=== PATIENT | female | born 1935 | race Caucasian/White ===

== ENCOUNTER 2019-01-16 22:05 | Inpatient (IN) | payer MEDICAID, MEDICARE ==
[~2019-01-16] VITALS: Ht 154.9 cm; Wt 46.3 kg
[2019-01-16] MEDS ORDERED: LEVOTHYROXIN TAB 25MCG (22:54)
[2019-01-16] MEDS ORDERED: XARELTO 20 MG TABLET (22:54)
[2019-01-16] MEDS ORDERED: LOSARTAN POTASSIUM 25 MG PO (22:54)
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
--- NOTE | 2019-01-17 01:26 | NUR ---
Pt. admitted to MHU , under care of Dr. YEN/BRYSON Belongs List completed. PATIENT ON 5150 FOR GD.
[2019-01-17] MEDS ORDERED: MAG HYDROX/AL HYDROX/SIMETH 30 ML LIQUID UDC PO PRN (01:30)
[2019-01-17] MEDS ORDERED: MAGNESIUM HYDROXIDE 30 ML LIQUID UDC PO PRN (01:30)
[2019-01-17] MEDS ORDERED: CLONAZEPAM 0.5 MG TABLET PO PRN (01:30)
[2019-01-17] MEDS ORDERED: ACETAMINOPHEN 325 MG TABLET PO PRN (01:30)
[2019-01-17] MEDS ORDERED: LORAZEPAM 2 MG/1 ML VIAL IM ONE (02:15)
[2019-01-17] MEDS ORDERED: OLANZAPINE 10 MG VIAL IM ONE (02:15)
[2019-01-17 07:30] VITALS: BP 164/66
[2019-01-17] MEDS ORDERED: LOSA25TA27 PO (08:28)
[2019-01-17] MEDS ORDERED: LEVO25TA9 PO (08:35)
[2019-01-17] MEDS ORDERED: RIVA10TA PO (08:38)
[2019-01-17] MEDS ORDERED: EPOE1VIA12 IJ (08:41)
[2019-01-17] MEDS ORDERED: QUET25TA PO ×2 (08:46→08:47)
[2019-01-17 11:15] VITALS: BP 119/59
[2019-01-17] MEDS: QUETIAPINE FUMARATE 25 MG TABLET PO SCH ×2 (11:20→17:36)
--- NOTE | 2019-01-17 15:18 | NUR ---
Initial Discharge Plan: Patient is a 83 year old female who currently lives at [facility] [[address] [place] [address]; ]. Per international logistics coordinator, Derrick, patient will be able to return when the patient is ready for discharge. concrete worker called and left a voicemail fro Celi Morrell [[phone]], who is listed on patient POLST, and is awaiting a call back. concrete worker will continue to collaborate with patient, family, and MD on a safe and proper discharge.
[2019-01-17 16:00] VITALS: BP 120/63
[2019-01-17] MEDS: RIVAROXABAN 10 MG TABLET PO SCH (17:45)
--- NOTE | 2019-01-17 18:51 | NUR ---
Pt received this morning in bed, assisted to adelita-chair, assessed, AOx1-2 confused and forgetful. Pt is compliant with routine medication administration as ordered. Pt seen by MD. New orders received. Pt is to be NPO starting midnight r/t lipid panel requiring fasting. Pt denies SI/HI and pain or discomfort throughout this shift. PT assisted to bathrom for BMx1 and pale yellow voiding. Pt able to make needs known. Comfort and safety measures implemented. Will continue to monitor for safety.
--- NOTE | 2019-01-17 19:45 | NUR ---
Received patient in adelita chair. Confused and forgetful. No acute distress or pain noted. Denies SI/HI. Will continue to monitor.
[2019-01-17 20:56] VITALS: BP 119/50
[2019-01-17] MEDS: CLONAZEPAM 0.5 MG TABLET PO PRN (21:14)
[2019-01-17] MEDS: TEMAZEPAM 7.5 MG CAPSULE PO PRN (22:04)
[2019-01-18] MEDS: LEVOTHYROXINE SODIUM 25 MCG TABLET PO SCH (06:50)
--- NOTE | 2019-01-18 06:59 | NUR ---
She was aggressive and uncooperative and tried to get out of adelita-chair. Did not have a good sleep even with help of Restoril 7.5 mg cap. Only 3.5 hours sleep. Refused blood work and Synthroid this morning. Continue to monitor and will endorse to the day shift nurse accordingly.
[2019-01-18 07:30] VITALS: BP 134/63
[2019-01-18] MEDS: QUETIAPINE FUMARATE 25 MG TABLET PO SCH ×2 (09:24→16:42)
[2019-01-18] MEDS: LOSARTAN POTASSIUM 25 MG TABLET PO SCH (09:24)
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
--- NOTE | 2019-01-18 14:00 | NUR ---
Gps/Ornamenter- Per Wound care Nurse ok to apply xeroform gauze to small skin tears and brusings to bilateral forearms, sites covered w/ large bandaid.
[2019-01-18 16:00] VITALS: BP 102/75
[2019-01-18] MEDS: RIVAROXABAN 10 MG TABLET PO SCH (17:27)
[2019-01-18 19:52] VITALS: BP 114/51
[2019-01-18] MEDS: TEMAZEPAM 7.5 MG CAPSULE PO PRN (23:17)
[2019-01-18 23:40] LABS: *BILIRUBIN,URIN NEGATIVE (NEGATIVE); *COLOR,URINE YELLOW (YELLOW); *KETONES,URINE NEGATIVE (NEGATIVE); *UROBILINOGEN,URINE 0.2 E.U./dl (NORMAL); LEUKOCYTE ESTERASE ,URINE 1+ (NEGATIVE); NITRITE, URINE NEGATIVE (NEGATIVE); UGLUCOSE NEGATIVE (NEGATIVE)
[2019-01-18 23:46] LABS: *BLOOD, URINE TRACE (NEGATIVE)
[2019-01-18 23:47] LABS: *CLARITY,URINE HAZY (CLEAR)
[2019-01-18 23:49] LABS: BACTERIA,URINE FEW /HPF (NONE SEEN); WBC,URINE 20-50 /HPF (0-3)
[2019-01-18 23:50] LABS: MUCUS,URINE FEW /LPF (0-FEW); SQUAMOUS EPITHELIAL CELL,UR MODERATE /HPF (NONE SEEN)
[2019-01-18 23:52] LABS: *AMPHETAMINE, URINE NEGATIVE (NEGATIVE); *BARBITURATE, URINE NEGATIVE (NEGATIVE); *CANNABINOID, URINE NEGATIVE (NEGATIVE); *COCCAINE, URINE NEGATIVE (NEGATIVE); *OPIATE, URINE NEGATIVE (NEGATIVE); *PHENCYCLIDINE SCREEN,URINE NEGATIVE (NEGATIVE)
[2019-01-19] MEDS: CLONAZEPAM 0.5 MG TABLET PO PRN (03:03)
[2019-01-19] MEDS: LEVOTHYROXINE SODIUM 25 MCG TABLET PO SCH (06:29)
--- NOTE | 2019-01-19 06:46 | NUR ---
Pt in bed resting,calm. He had shower in AM. Slept 5.30 hrs. Was given restoril and clonazepam last night night. Compliant with meds. Safety measures rendered.
[2019-01-19 07:30] VITALS: BP 146/61
[2019-01-19] MEDS: LOSARTAN POTASSIUM 25 MG TABLET PO SCH (09:19)
[2019-01-19] MEDS: QUETIAPINE FUMARATE 25 MG TABLET PO SCH ×2 (09:20→17:20)
[2019-01-19 16:29] VITALS: BP 119/47
[2019-01-19] MEDS: RIVAROXABAN 15 MG TABLET PO SCH (18:29)
[2019-01-19] MEDS: CEphaleXIN 500 MG CAPSULE PO SCH (20:09)
[2019-01-19 21:02] VITALS: BP 126/57
[2019-01-20] MEDS: LEVOTHYROXINE SODIUM 25 MCG TABLET PO SCH (06:08)
[2019-01-20 07:30] VITALS: BP 148/67
[2019-01-20 07:42] LABS: BASOPHILS % (AUTO) 0.5 % (0.0-2.0); EOSINOPHILS # (AUTO) 0.3 K/uL (0.0-0.7); EOSINOPHILS % (AUTO) 7.1 % (0.0-7.0); HEMATOCRIT 31.3 % (31.2-41.9); LYMPHOCYTES # (AUTO) 1.1 K/uL (20.0-40.0); LYMPHOCYTES % (AUTO) 23.5 % (20.5-51.5); MEAN CORPUSCULAR HEMOGLOBIN 30.2 uug (24.7-32.8); MEAN CORPUSCULAR HGB CONC 32 g/dL (32.3-35.6); MEAN CORPUSCULAR VOLUME 94.5 fL (75.5-95.3); MONOCYTES # (AUTO) 0.5 K/uL (2.0-10.0); MONOCYTES % (AUTO) 10.4 % (0.0-11.0); NEUTROPHILS # (AUTO) 2.7 K/uL (1.8-8.9); NEUTROPHILS % (AUTO) 58.5 % (38.5-71.5); PLATELET COUNT (AUTO) 198 K/uL (179-408); RED BLOOD CELL COUNT(AUTO) 3.31 MIL/uL (3.63-4.92); WHITE BLOOD COUNT (AUTO) 4.6 K/uL (3.8-11.8)
[2019-01-20 07:58] LABS: ALANINE AMINOTRANSFERASE 12 U/L (14-59); ALKALINE PHOSPHATASE 73 U/L (50-136); ASPARTATE AMINOTRANSFERASE 13 U/L (15-37); BILIRUBIN,TOTAL 0.2 mg/dL (0.2-1.0); CARBON DIOXIDE 22 mmol/L (21-32); CHLORIDE 111 mmol/L (98-107); CHOLESTEROL 142 mg/dL (<200); CREATININE 2.2 mg/dL (0.6-1.3); GLUCOSE 101 mg/dL (74-106); HDL CHOLESTEROL 36 mg/dL (40-60); MAGNESIUM 2.2 mg/dL (1.8-2.4); PHOSPHOROUS 4.5 mg/dL (2.5-4.9); POTASSIUM 5.2 mmol/L (3.5-5.1); TOTAL PROTEIN, SERUM 6.2 g/dL (6.4-8.2); TRIGLYCERIDES 107 MG/DL (30-150); UREA NITROGEN, BLOOD 61 mg/dL (7-18)
[2019-01-20 08:05] LABS: THYROID STIMULATING HORMONE 7.782 mIU/mL (0.358-3.740)
[2019-01-20] MEDS: QUETIAPINE FUMARATE 25 MG TABLET PO SCH ×2 (08:58→17:36)
[2019-01-20] MEDS: CEphaleXIN 500 MG CAPSULE PO SCH ×2 (08:58→20:02)
[2019-01-20] MEDS: LOSARTAN POTASSIUM 25 MG TABLET PO SCH (08:59)
--- NOTE | 2019-01-20 12:05 | NUR ---
Gps/Casualty Claims Supervisor- This am lab results reported to Mauricio Hodge NP, came in to see patient, Dr Nicholas Hernandez will see patient.
--- NOTE | 2019-01-20 15:30 | NUR ---
Gps/Dry Kiln Operator Helper- Labs results reported to Dr Nicholas Anglin (K+ 5.2, BUN 61, creat. 2.2 )no new order received.
[2019-01-20 16:00] VITALS: BP 109/58
[2019-01-20] MEDS: RIVAROXABAN 15 MG TABLET PO SCH (17:37)
--- NOTE | 2019-01-20 18:30 | NUR ---
Gps/Awning Hanger Supervisor- Remains up on her adelita-chair , this pm, family are here visiting.
[2019-01-20 19:58] VITALS: BP 119/51
[2019-01-21] MEDS: LEVOTHYROXINE SODIUM 25 MCG TABLET PO SCH (06:03)
[2019-01-21 07:30] VITALS: BP 116/95
[2019-01-21] MEDS: QUETIAPINE FUMARATE 25 MG TABLET PO SCH ×3 (08:19→17:03)
[2019-01-21] MEDS: LOSARTAN POTASSIUM 25 MG TABLET PO SCH (08:19)
[2019-01-21] MEDS: CEphaleXIN 500 MG CAPSULE PO SCH ×2 (08:19→21:00)
[2019-01-21] MEDS ORDERED: OLANZAPINE 10 MG VIAL IM ONE (12:00)
[2019-01-21] MEDS ORDERED: LORAZEPAM 2 MG/1 ML VIAL IM ONE (12:00)
[2019-01-21] MEDS ORDERED: diphenhydrAMINE 50 MG/1 ML VIAL IM ONE (12:00)
--- NOTE | 2019-01-21 12:00 | NUR ---
patient is confused and incoherent striking out to other nursing staffs. refused to take prn medication.agitated aggressive high risk for violence,Dr. Pineda notified IM was given.will continue close monitoring.
[2019-01-21 15:59] VITALS: BP 106/45
[2019-01-21] MEDS: RIVAROXABAN 15 MG TABLET PO SCH (17:05)
[2019-01-21 20:20] VITALS: BP 119/54
[2019-01-22] MEDS: LEVOTHYROXINE SODIUM 25 MCG TABLET PO SCH (06:24)
[2019-01-22 07:30] VITALS: BP 129/62
[2019-01-22] MEDS: LOSARTAN POTASSIUM 25 MG TABLET PO SCH (09:02)
[2019-01-22] MEDS: CEphaleXIN 500 MG CAPSULE PO SCH ×2 (09:02→20:47)
[2019-01-22] MEDS: QUETIAPINE FUMARATE 25 MG TABLET PO SCH ×3 (09:04→17:19)
[2019-01-22] MEDS: Z GUARD REMEDY PASTE 57 GM TUBE TOP SCH ×2 (09:36→21:42)
[2019-01-22 16:08] VITALS: BP 150/83
[2019-01-22] MEDS: RIVAROXABAN 15 MG TABLET PO SCH (17:24)
[2019-01-22 20:10] VITALS: BP 106/49
[2019-01-22] MEDS: CLONAZEPAM 0.5 MG TABLET PO PRN (20:47)
--- NOTE | 2019-01-22 23:30 | NUR ---
PICTURES WERE TAKEN OF PATIENT'S SKIN TEAR X2 ON HER LEFT HAND AND WRIST. Addendum: 01/23/19 at 0453 by MIGUELITO GREENE RN PICTURES WERE TAKEN ON 01/23/19 AT APPROX 0030.
[2019-01-23] MEDS: TEMAZEPAM 7.5 MG CAPSULE PO PRN (00:21)
[2019-01-23] MEDS: CLONAZEPAM 0.5 MG TABLET PO PRN ×4 (03:00→17:08)
[2019-01-23] MEDS: LEVOTHYROXINE SODIUM 25 MCG TABLET PO SCH (06:15)
[2019-01-23 07:26] LABS: BASOPHILS % (AUTO) 0.6 % (0.0-2.0); EOSINOPHILS # (AUTO) 0.4 K/uL (0.0-0.7); HEMATOCRIT 30.3 % (31.2-41.9); HEMOGLOBIN 9.8 g/dL (10.9-14.3); LYMPHOCYTES # (AUTO) 1.1 K/uL (20.0-40.0); LYMPHOCYTES % (AUTO) 20.9 % (20.5-51.5); MEAN CORPUSCULAR HEMOGLOBIN 30.2 uug (24.7-32.8); MEAN CORPUSCULAR HGB CONC 32 g/dL (32.3-35.6); MEAN CORPUSCULAR VOLUME 93.5 fL (75.5-95.3); MONOCYTES # (AUTO) 0.6 K/uL (2.0-10.0); MONOCYTES % (AUTO) 11.9 % (0.0-11.0); NEUTROPHILS # (AUTO) 3.1 K/uL (1.8-8.9); NEUTROPHILS % (AUTO) 59.6 % (38.5-71.5); PLATELET COUNT (AUTO) 222 K/uL (179-408); RED BLOOD CELL COUNT(AUTO) 3.24 MIL/uL (3.63-4.92); WHITE BLOOD COUNT (AUTO) 5.1 K/uL (3.8-11.8)
[2019-01-23 07:30] VITALS: BP 118/58
[2019-01-23 07:58] LABS: CARBON DIOXIDE 22 mmol/L (21-32); CHLORIDE 108 mmol/L (98-107); CREATININE 2.3 mg/dL (0.6-1.3); GLUCOSE 89 mg/dL (74-106); POTASSIUM 5.7 mmol/L (3.5-5.1); UREA NITROGEN, BLOOD 76 mg/dL (7-18)
[2019-01-23] MEDS: LOSARTAN POTASSIUM 25 MG TABLET PO SCH (08:10)
[2019-01-23] MEDS: CEphaleXIN 500 MG CAPSULE PO SCH ×2 (08:10→21:00)
[2019-01-23] MEDS: QUETIAPINE FUMARATE 25 MG TABLET PO SCH ×2 (08:10→17:08)
[2019-01-23] MEDS: Z GUARD REMEDY PASTE 57 GM TUBE TOP SCH ×2 (08:55→21:00)
[2019-01-23] MEDS ORDERED: QUETIAPINE FUMARATE 25 MG TABLET PO SCH (09:00)
--- NOTE | 2019-01-23 10:13 | NUR ---
FIREARMS REPORT: food counter worker completed and submitted a DOJ firearms report for a 5250 GD certification.
[2019-01-23] MEDS ORDERED: SODIUM POLYSTYRENE SULFONATE 15 G/60 ML LIQUID UDC PO ONE (11:30)
--- NOTE | 2019-01-23 12:54 | NUR ---
Discharge planning: milk processing worker called and spoke with marketing technology coordinator, Derrick, at [facility] [[address], [place] [address]; ] regarding patient tentative discharge scheduled for Friday, January 25, 2019. Derrick states he is agreeable with tentative date and accepting of patient. Derrick requested updated clinical information. milk processing worker faxed updated clinicals and will follow-up as needed.
--- NOTE | 2019-01-23 15:28 | NUR ---
patient sitting in gerichair, had episode of agressiveness and combativness, throwing stuff on others, very difficult to redirect, Klonopin administered as ordered at breakfast time and lunch time. effective, kept safe. continue to monitor
[2019-01-23 16:00] VITALS: BP 103/37
[2019-01-23] MEDS: RIVAROXABAN 15 MG TABLET PO SCH (17:10)
[2019-01-23 20:40] VITALS: BP 139/61
[2019-01-23] MEDS ORDERED: LORAZEPAM 2 MG/1 ML VIAL IM ONE (21:30)
[2019-01-23] MEDS ORDERED: OLANZAPINE 10 MG VIAL IM ONE (21:30)
[2019-01-23] MEDS ORDERED: diphenhydrAMINE 50 MG/1 ML VIAL IM ONE (21:30)
--- NOTE | 2019-01-23 22:00 | NUR ---
received to care, up in adelita chair, appearing agitated, yelling incoherently, and attempting to strike staff, at times. she spoke with her family on the phone, and they encouraged her to cooperate, but she continued to yell and scream, refusing all medications, and care. she finally escalated to the point that the doctor was called, and she was given an IM injection of zyprexa (2.5 mg)/ ativan (1 mg) /benadryl (25 mg)
--- NOTE | 2019-01-23 22:30 | NUR ---
received to care, up in adelita chair, appearing agitated, yelling incoherently, and attempting to strike staff, at times. she spoke with her family on the phone, and they encouraged her to cooperate, but she continued to yell and scream, refusing all medications, and care. she finally escalated to the point that the doctor was called, and she was given an IM injection of zyprexa (2.5 mg)/ ativan (1 mg) /benadryl (25 mg), at 2129. as of 2229, she remains agitated, but calmer. no yelling of aggression noted. remains up in adelita chair for safety. will continue to monitor closely.
--- NOTE | 2019-01-24 00:30 | NUR ---
appears to be sleeping intermittently. no distress noted.
[2019-01-24] MEDS: LEVOTHYROXINE SODIUM 50 MCG TABLET PO SCH (06:46)
[2019-01-24] MEDS ORDERED: LEVOTHYROXINE SODIUM 25 MCG TABLET PO SCH (07:00)
[2019-01-24 07:30] VITALS: BP 109/72
--- NOTE | 2019-01-24 09:06 | NUR ---
Gps/Administrative Assistant Front Desk- Unable to administer routine am. meds., patient asleep. will reoffer at a later time when fully awake.
--- NOTE | 2019-01-24 11:00 | NUR ---
Gps/Team Primary Care Physician- Per FINAL INSPECTOR AND TESTER assisted patient with her late breakfast, noted pt. remains drowsy, was instructed tonot to feed pt. at this time r/t to sleepiness.Arosable, but goes right back to sleep. V/s stable 94% 02 sat.
[2019-01-24] MEDS: Z GUARD REMEDY PASTE 57 GM TUBE TOP SCH ×2 (11:59→21:38)
[2019-01-24] MEDS: CEFTRIAXONE 1 G VIAL IM SCH (12:09)
[2019-01-24] MEDS: LOSARTAN POTASSIUM 25 MG TABLET PO SCH (12:19)
[2019-01-24] MEDS: QUETIAPINE FUMARATE 25 MG TABLET PO SCH ×2 (12:20→20:43)
[2019-01-24 16:00] VITALS: BP 124/51
[2019-01-24] MEDS: RIVAROXABAN 15 MG TABLET PO SCH (18:04)
[2019-01-24 20:30] VITALS: BP 132/50
--- NOTE | 2019-01-24 22:00 | NUR ---
received to care, up in adelita chair, talking to self, pleasant , but guarded, upon approach. compliant with medications and staff direction. as of 2199, she remains awake, in adelita chair, for safety. no distress noted. will continue to monitor closely.
--- NOTE | 2019-01-24 23:30 | NUR ---
assisted to bed at 2300. as of 2329, she appears to be asleep. no distress noted. will continue to monitor closely.
--- NOTE | 2019-01-25 06:40 | NUR ---
slept 6.5 hours
[2019-01-25 06:41] LABS: BASOPHILS % (AUTO) 0.6 % (0.0-2.0); EOSINOPHILS # (AUTO) 0.3 K/uL (0.0-0.7); EOSINOPHILS % (AUTO) 8.3 % (0.0-7.0); HEMATOCRIT 31.1 % (31.2-41.9); HEMOGLOBIN 9.9 g/dL (10.9-14.3); LYMPHOCYTES % (AUTO) 24.6 % (20.5-51.5); MEAN CORPUSCULAR HEMOGLOBIN 29.7 uug (24.7-32.8); MEAN CORPUSCULAR HGB CONC 32 g/dL (32.3-35.6); MEAN CORPUSCULAR VOLUME 93.4 fL (75.5-95.3); MONOCYTES # (AUTO) 0.5 K/uL (2.0-10.0); MONOCYTES % (AUTO) 11.9 % (0.0-11.0); NEUTROPHILS # (AUTO) 2.2 K/uL (1.8-8.9); NEUTROPHILS % (AUTO) 54.6 % (38.5-71.5); PLATELET COUNT (AUTO) 218 K/uL (179-408); RED BLOOD CELL COUNT(AUTO) 3.33 MIL/uL (3.63-4.92); WHITE BLOOD COUNT (AUTO) 4.1 K/uL (3.8-11.8)
[2019-01-25 06:45] LABS: CARBON DIOXIDE 23 mmol/L (21-32); CHLORIDE 110 mmol/L (98-107); CREATININE 2.4 mg/dL (0.6-1.3); GLUCOSE 116 mg/dL (74-106); POTASSIUM 5.2 mmol/L (3.5-5.1)
[2019-01-25 06:49] LABS: UREA NITROGEN, BLOOD 80 mg/dL (7-18)
[2019-01-25] MEDS: LEVOTHYROXINE SODIUM 50 MCG TABLET PO SCH (06:50)
[2019-01-25 07:30] VITALS: BP 116/56
[2019-01-25] MEDS: QUETIAPINE FUMARATE 25 MG TABLET PO SCH ×2 (08:37→20:14)
[2019-01-25] MEDS: LOSARTAN POTASSIUM 25 MG TABLET PO SCH (08:37)
[2019-01-25] MEDS: Z GUARD REMEDY PASTE 57 GM TUBE TOP SCH ×2 (08:38→20:15)
[2019-01-25] MEDS: CEFTRIAXONE 1 G VIAL IM SCH (11:53)
[2019-01-25 16:00] VITALS: BP 139/64
[2019-01-25] MEDS: RIVAROXABAN 15 MG TABLET PO SCH (18:17)
[2019-01-25 21:11] VITALS: BP 154/57
--- NOTE | 2019-01-25 22:00 | NUR ---
received to care, up in adelita chair for safety, pleasant, but confused, upon approach. compliant with medications, PO fluids, and bedtime snack. as of 2200, she appears to be asleep, in bed. no distress noted. will continue to monitor closely.
--- NOTE | 2019-01-26 06:00 | NUR ---
slept 7.5 hours
[2019-01-26] MEDS: LEVOTHYROXINE SODIUM 50 MCG TABLET PO SCH (06:52)
[2019-01-26 07:30] VITALS: BP 147/58
[2019-01-26] MEDS: LOSARTAN POTASSIUM 25 MG TABLET PO SCH (08:20)
[2019-01-26] MEDS: QUETIAPINE FUMARATE 25 MG TABLET PO SCH ×2 (08:21→20:18)
[2019-01-26] MEDS: Z GUARD REMEDY PASTE 57 GM TUBE TOP SCH ×2 (08:21→20:19)
[2019-01-26] MEDS: CEFTRIAXONE 1 G VIAL IM SCH (10:49)
[2019-01-26] MEDS: CLONAZEPAM 0.5 MG TABLET PO PRN (15:38)
--- NOTE | 2019-01-26 15:42 | NUR ---
patient agitated. screaming to staff. klonopin 0.25 mg po given. continue monitoring for safety.
[2019-01-26 16:00] VITALS: BP 143/59
--- NOTE | 2019-01-26 16:42 | NUR ---
patient is calm now. prn effective.
[2019-01-26] MEDS: RIVAROXABAN 15 MG TABLET PO SCH (17:07)
[2019-01-26 21:09] VITALS: BP 127/46
[2019-01-27] MEDS: LEVOTHYROXINE SODIUM 50 MCG TABLET PO SCH (07:01)
[2019-01-27 08:04] VITALS: BP 153/69
[2019-01-27] MEDS: QUETIAPINE FUMARATE 25 MG TABLET PO SCH ×2 (08:14→14:45)
[2019-01-27] MEDS: LOSARTAN POTASSIUM 25 MG TABLET PO SCH (08:14)
[2019-01-27] MEDS: Z GUARD REMEDY PASTE 57 GM TUBE TOP SCH ×2 (08:15→21:07)
[2019-01-27] MEDS: CLONAZEPAM 0.5 MG TABLET PO PRN ×2 (09:54→14:12)
[2019-01-27] MEDS: CEFTRIAXONE 1 G VIAL IM SCH (12:04)
[2019-01-27 16:50] VITALS: BP 134/62
[2019-01-27] MEDS: RIVAROXABAN 15 MG TABLET PO SCH (17:19)
[2019-01-27 20:00] VITALS: BP 97/50
[2019-01-27] MEDS ORDERED: QUETIAPINE FUMARATE 25 MG TABLET PO SCH (21:00)
--- NOTE | 2019-01-27 22:06 | NUR ---
RECEIVED PATIENT IN THE TAE CHAIR SLEEPING. SLEPT TILL APPROX.21;30 WHEN SOME SNACKS WAS OFFERED AND WELL TAKEN. COMPLIANT WITH HER MEDS AND WAS PUT IN BED TO SLEEP.DENIES PAIN OR DISCOMFORT. WILL CONTINUE TO MONITOR.
--- NOTE | 2019-01-28 06:29 | NUR ---
SLEPT WELL FOR APPROX.8;30HRS. PERSONAL HYGEINE KEPT AND MADE COMFORTABLE IN BED.
[2019-01-28] MEDS: LEVOTHYROXINE SODIUM 50 MCG TABLET PO SCH (06:30)
[2019-01-28 07:30] VITALS: BP 131/50
[2019-01-28 07:44] LABS: BASOPHILS % (AUTO) 0.6 % (0.0-2.0); EOSINOPHILS # (AUTO) 0.4 K/uL (0.0-0.7); EOSINOPHILS % (AUTO) 10.5 % (0.0-7.0); HEMATOCRIT 29.1 % (31.2-41.9); HEMOGLOBIN 9.3 g/dL (10.9-14.3); LYMPHOCYTES % (AUTO) 27.3 % (20.5-51.5); MEAN CORPUSCULAR HEMOGLOBIN 29.8 uug (24.7-32.8); MEAN CORPUSCULAR HGB CONC 32 g/dL (32.3-35.6); MEAN CORPUSCULAR VOLUME 92.7 fL (75.5-95.3); MONOCYTES # (AUTO) 0.4 K/uL (2.0-10.0); MONOCYTES % (AUTO) 10.5 % (0.0-11.0); NEUTROPHILS # (AUTO) 1.9 K/uL (1.8-8.9); NEUTROPHILS % (AUTO) 51.1 % (38.5-71.5); PLATELET COUNT (AUTO) 218 K/uL (179-408); RED BLOOD CELL COUNT(AUTO) 3.13 MIL/uL (3.63-4.92); WHITE BLOOD COUNT (AUTO) 3.8 K/uL (3.8-11.8)
[2019-01-28] MEDS: QUETIAPINE FUMARATE 25 MG TABLET PO SCH ×2 (08:00→12:42)
[2019-01-28 08:01] VITALS: BP 131/58
[2019-01-28] MEDS: LOSARTAN POTASSIUM 25 MG TABLET PO SCH (08:01)
[2019-01-28] MEDS: CLONAZEPAM 0.5 MG TABLET PO PRN (08:01)
[2019-01-28] MEDS: Z GUARD REMEDY PASTE 57 GM TUBE TOP SCH (08:02)
[2019-01-28 08:10] LABS: ALANINE AMINOTRANSFERASE 12 U/L (14-59); ALKALINE PHOSPHATASE 62 U/L (50-136); ASPARTATE AMINOTRANSFERASE 26 U/L (15-37); BILIRUBIN,TOTAL 0.2 mg/dL (0.2-1.0); CARBON DIOXIDE 24 mmol/L (21-32); CHLORIDE 112 mmol/L (98-107); CREATININE 1.9 mg/dL (0.6-1.3); GLUCOSE 99 mg/dL (74-106); POTASSIUM 5.3 mmol/L (3.5-5.1); TOTAL PROTEIN, SERUM 6.5 g/dL (6.4-8.2); UREA NITROGEN, BLOOD 58 mg/dL (7-18)
--- NOTE | 2019-01-28 09:00 | NUR ---
PATIENT IS ALERT X 1-2, AWAKE, NO SOB, RESP EVEN NONLABORED,SKIN WARM AND DRY TO TOUCH, NO SOB, RESP EVEN NONLABORED,SKIN WARM AND DRY TO TOUCH, PATIENT FOUND SITTING ON THE FLOOR NEXT TO HER BED, AROUND 0845 AM, ASSESSMENT DONE, NO INJURY NOTED AT THIS TIME, PATIENT DENIED HITTING HER HEAD TO ANYTHING, DENIED ANY PAIN, ABLE TO MOVE HER UPPER AND LOWER EXTREMITIES WITHOUT ANY LIMITATION, ASSISTED TO GERICHAIR, NOTED WITH SKIN TEARS TO RIGHT FOREARM AT THREE DIFFERENT SITES #1 2CM X1.5CM, #2 1.5CM 1CM , #3 4CM X4.5 CM, APPROXIMATED SKIN AND TREATMENT DONE. NO ACTIVE BLEEDING NOTED, MD PEACOCK AWARE, GRAND DAUGHTER JOSE R MADE AWARE, BILATERAL HIP XRAYS PERFORMED, NO ACUTE FRACTURE NOTED. PATIENT IS SITTING IN GERICHAIR AT THIS TIME, NO ACUTE DISTRESS NOTED AT THIS TIME.CONTINUE TO MONITOR
--- NOTE | 2019-01-28 10:02 | NUR ---
DC NOTE: Patient will be discharged back to [facility] [[address] [place] [address]; ] and transportation will be provided by ambulance at 1:00pm. Please arrange ambulance transportation for this patient. Acceptance to facility was received by Derrick quality management coordinator, who states they are ready to accept the patient today. Patient is AxOx1, denies suicidal ideation, is able to plan for self-care, and is agreeable with discharge plan. compensator worker has called and spoken with patient granddaughter, Fanta Grady [[phone]], who is aware and agreeable with discharge plan. Patient will follow-up with Dr. Johnson [psychiatrist] and Dr. Corbin [associate field service engineer] at the facility. Patient has also been provided with mental health resources including [facility] Crisis Line , Alaina Dorado , and the National Suicide Prevention Lifeline .
[2019-01-28] MEDS ORDERED: SODIUM POLYSTYRENE SULFONATE 15 G/60 ML LIQUID UDC PO ONE (10:45)
[2019-01-28] MEDS: CEFTRIAXONE 1 G VIAL IM SCH (10:46)
--- NOTE | 2019-01-28 13:50 | NUR ---
PATIENT DISCHARGED TO [facility] VIA AMBULANCE, DISCHARGE INSTRUCTIONS GIVEN TO PATIENT AND SENT WITH PATIENT, BELONGINGS ARE ACCOUNTED AND SINGEDAND SENT WITH PATIENT. ID BAND REMOVED, STABLE CONDITION, NO REPORT GIVEN TO IZZY AT THE FACILITY, GRANDDAUGHTER JOSE R MADE AWARE.
== END 2019-01-28 14:58 | DRG 885 ==
LOC: ER 22:08 → GPS 23:30
PROVIDERS: ADMIT Psychiatry & Neurology Psychiatry
DX: F29 Unspecified psychosis not due to a substance or known physiological condition (principal); N18.4 Chronic kidney disease, stage 4 (severe); F03.91 Unspecified dementia, unspecified severity, with behavioral disturbance; E44.0 Moderate protein-calorie malnutrition; Z68.1 Body mass index [BMI] 19.9 or less, adult; N39.0 Urinary tract infection, site not specified; M16.0 Bilateral primary osteoarthritis of hip; M47.898 Other spondylosis, sacral and sacrococcygeal region; I12.9 Hypertensive chronic kidney disease with stage 1 through stage 4 chronic kidney disease, or unspecified chronic kidney disease; E87.5 Hyperkalemia; Z86.711 Personal history of pulmonary embolism; Z79.01 Long term (current) use of anticoagulants; E03.9 Hypothyroidism, unspecified; Z79.890 Hormone replacement therapy; Z91.19 Patient's noncompliance with other medical treatment and regimen; D64.9 Anemia, unspecified; S40.022A Contusion of left upper arm, initial encounter; S40.021A Contusion of right upper arm, initial encounter; X58.XXXA Exposure to other specified factors, initial encounter; Y92.129 Unspecified place in nursing home as the place of occurrence of the external cause; Z91.81 History of falling
CPT/HCPCS: 36415; 71045; 73521; 80307; 83735; 84100; 84443; 85025; 87086; A4663; J0696; J1200; J2060; J2358

== ENCOUNTER 2019-01-31 21:59 | Inpatient (IN) | payer MEDICARE, MEDICAID ==
[~2019-01-31] VITALS: Ht 152.4 cm; Wt 45.4 kg
[~2019-01-31 21:59] MED LIST: EPOE1VIA12 IJ; LEVO25TA9 PO; LOSA25TA27 PO; RIVA10TA PO
[2019-01-31] MEDS ORDERED: QUET25TA PO (22:16)
[2019-01-31] MEDS ORDERED: LEVO-103 PO (22:16)
[2019-01-31] MEDS ORDERED: MAG-55 PO (22:16)
[2019-01-31] MEDS ORDERED: LOSA25TA3 PO (22:16)
[2019-01-31] MEDS ORDERED: ACET-2154 PO (22:16)
[2019-01-31] MEDS ORDERED: QUET50TA PO (22:16)
[2019-01-31 22:44] LABS: BASOPHILS % (AUTO) 0.8 % (0.0-2.0); EOSINOPHILS # (AUTO) 0.5 K/uL (0.0-0.7); EOSINOPHILS % (AUTO) 9.9 % (0.0-7.0); HEMATOCRIT 28.9 % (31.2-41.9); HEMOGLOBIN 9.2 g/dL (10.9-14.3); LYMPHOCYTES # (AUTO) 1.2 K/uL (20.0-40.0); LYMPHOCYTES % (AUTO) 23.2 % (20.5-51.5); MEAN CORPUSCULAR HEMOGLOBIN 29.3 uug (24.7-32.8); MEAN CORPUSCULAR HGB CONC 32 g/dL (32.3-35.6); MEAN CORPUSCULAR VOLUME 91.9 fL (75.5-95.3); MONOCYTES # (AUTO) 0.5 K/uL (2.0-10.0); NEUTROPHILS % (AUTO) 57.1 % (38.5-71.5); PLATELET COUNT (AUTO) 226 K/uL (179-408); RED BLOOD CELL COUNT(AUTO) 3.14 MIL/uL (3.63-4.92); WHITE BLOOD COUNT (AUTO) 5.3 K/uL (3.8-11.8)
[2019-01-31 23:00] LABS: CARBON DIOXIDE 23 mmol/L (21-32); CHLORIDE 111 mmol/L (98-107); CREATININE 2.6 mg/dL (0.6-1.3); GLUCOSE 108 mg/dL (74-106); POTASSIUM 5.6 mmol/L (3.5-5.1); UREA NITROGEN, BLOOD 58 mg/dL (7-18)
[2019-01-31 23:05] LABS: ALANINE AMINOTRANSFERASE 15 U/L (14-59); ALKALINE PHOSPHATASE 68 U/L (50-136); ASPARTATE AMINOTRANSFERASE 26 U/L (15-37); BILIRUBIN,DIRECT 0.1 mg/dL (0.0-0.2); BILIRUBIN,TOTAL 0.2 mg/dL (0.2-1.0); TOTAL PROTEIN, SERUM 6.8 g/dL (6.4-8.2)
[2019-01-31 23:14] LABS: ACETAMINOPHEN < 2.0 ug/mL (10-30)
[2019-01-31 23:17] LABS: THYROID STIMULATING HORMONE 14.959 mIU/mL (0.358-3.740)
[2019-01-31 23:25] LABS: ETHANOL < 3 MG/DL (0-0)
[2019-02-01] MEDS ORDERED: ONDANSETRON 4 MG/2 ML VIAL IV PRN (00:30)
[2019-02-01] MEDS ORDERED: ACETAMINOPHEN 325 MG TABLET PO PRN (00:30)
[2019-02-01 01:21] VITALS: BP 144/54
[2019-02-01] MEDS ORDERED: QUETIAPINE FUMARATE 25 MG TABLET PO ONE (01:30)
[2019-02-01] MEDS: IV NS 1000 ML 1,000 ML IV PRN (02:34)
[2019-02-01 04:00] VITALS: BP 138/57
[2019-02-01] MEDS ORDERED: Z GUARD REMEDY PASTE 57 GM TUBE TOP PRN (04:00)
[2019-02-01] MEDS: LEVOTHYROXINE SODIUM 75 MCG TABLET PO SCH (06:34)
[2019-02-01 06:45] LABS: CARBON DIOXIDE 22 mmol/L (21-32); CHLORIDE 115 mmol/L (98-107); CHOLESTEROL 131 mg/dL (<200); CREATININE 2.5 mg/dL (0.6-1.3); GLUCOSE 89 mg/dL (74-106); HDL CHOLESTEROL 40 mg/dL (40-60); MAGNESIUM 2.3 mg/dL (1.8-2.4); PHOSPHOROUS 5.3 mg/dL (2.5-4.9); POTASSIUM 5.4 mmol/L (3.5-5.1); TRIGLYCERIDES 64 MG/DL (30-150); UREA NITROGEN, BLOOD 53 mg/dL (7-18)
[2019-02-01 06:58] LABS: BASOPHILS % (AUTO) 0.4 % (0.0-2.0); EOSINOPHILS # (AUTO) 0.5 K/uL (0.0-0.7); EOSINOPHILS % (AUTO) 11.6 % (0.0-7.0); HEMOGLOBIN 8.9 g/dL (10.9-14.3); LYMPHOCYTES # (AUTO) 1.3 K/uL (20.0-40.0); LYMPHOCYTES % (AUTO) 28.4 % (20.5-51.5); MEAN CORPUSCULAR HEMOGLOBIN 29.5 uug (24.7-32.8); MEAN CORPUSCULAR HGB CONC 32 g/dL (32.3-35.6); MEAN CORPUSCULAR VOLUME 92.5 fL (75.5-95.3); MONOCYTES # (AUTO) 0.5 K/uL (2.0-10.0); MONOCYTES % (AUTO) 10.7 % (0.0-11.0); NEUTROPHILS # (AUTO) 2.2 K/uL (1.8-8.9); NEUTROPHILS % (AUTO) 48.9 % (38.5-71.5); PLATELET COUNT (AUTO) 212 K/uL (179-408); RED BLOOD CELL COUNT(AUTO) 3.03 MIL/uL (3.63-4.92); WHITE BLOOD COUNT (AUTO) 4.5 K/uL (3.8-11.8)
[2019-02-01] MEDS: APIXABAN 5 MG TABLET PO SCH ×2 (08:54→18:05)
[2019-02-01] MEDS: QUETIAPINE FUMARATE 25 MG TABLET PO SCH ×3 (08:54→20:39)
[2019-02-01] MEDS ORDERED: LOSARTAN POTASSIUM 25 MG TABLET PO SCH (09:00)
[2019-02-01] MEDS ORDERED: CEFTRIAXONE 1 G in IV DEXTROSE 5% 50 ML IV SCH (09:00)
[2019-02-01 09:50] VITALS: BP 145/51
[2019-02-01] MEDS: DIVALPROEX SPRINKLE 125 MG CAP.SPRINK PO SCH ×2 (09:59→20:41)
[2019-02-01 14:27] LABS: *BILIRUBIN,URIN NEGATIVE (NEGATIVE); *COLOR,URINE YELLOW (YELLOW); *KETONES,URINE NEGATIVE (NEGATIVE); *UROBILINOGEN,URINE 0.2 E.U./dl (NORMAL); LEUKOCYTE ESTERASE ,URINE 2+ (NEGATIVE); NITRITE, URINE NEGATIVE (NEGATIVE); UGLUCOSE NEGATIVE (NEGATIVE)
[2019-02-01 14:30] LABS: *BLOOD, URINE TRACE (NEGATIVE); *CLARITY,URINE HAZY (CLEAR)
[2019-02-01 14:39] LABS: BACTERIA,URINE FEW /HPF (NONE SEEN); SQUAMOUS EPITHELIAL CELL,UR MODERATE /HPF (NONE SEEN); WBC,URINE 20-50 /HPF (0-3)
[2019-02-01 15:08] LABS: *CREATININE,URINE 83.9 mg/dL (30-125); *URINE TOTAL PROTEIN RANDOM 26.1 mg/dL (<150/24HR)
[2019-02-01 16:31] VITALS: BP 147/65
[2019-02-01] MEDS ORDERED: RIVAROXABAN 10 MG TABLET PO SCH (18:00)
[2019-02-01] MEDS: CEFTRIAXONE 1 G in IV DEXTROSE 5% 50 ML IV SCH (18:05)
[2019-02-01 20:00] VITALS: BP 146/69
[2019-02-01] MEDS: LORAZEPAM 2 MG/1 ML VIAL IV PRN (20:18)
[2019-02-02 04:00] VITALS: BP 148/66
[2019-02-02] MEDS: IV NS 1000 ML 1,000 ML IV PRN (05:17)
[2019-02-02] MEDS: LEVOTHYROXINE SODIUM 75 MCG TABLET PO SCH (06:48)
[2019-02-02] MEDS ORDERED: SODIUM POLYSTYRENE SULFONATE 15 G/60 ML LIQUID UDC PO ONE ×2 (08:15→16:30)
[2019-02-02] MEDS: DIVALPROEX SPRINKLE 125 MG CAP.SPRINK PO SCH ×2 (08:29→20:39)
[2019-02-02] MEDS: QUETIAPINE FUMARATE 25 MG TABLET PO SCH ×3 (08:29→20:39)
[2019-02-02] MEDS ORDERED: hydrALAZINE HCL 20 MG/1 ML VIAL IV PRN (08:30)
[2019-02-02] MEDS: APIXABAN 5 MG TABLET PO SCH ×2 (08:31→16:53)
[2019-02-02] MEDS ORDERED: hydrALAZINE HCL 10 MG TABLET PO PRN (08:45)
[2019-02-02 09:34] LABS: BASOPHILS % (AUTO) 0.7 % (0.0-2.0); EOSINOPHILS # (AUTO) 0.5 K/uL (0.0-0.7); EOSINOPHILS % (AUTO) 11.1 % (0.0-7.0); HEMATOCRIT 29.5 % (31.2-41.9); HEMOGLOBIN 9.4 g/dL (10.9-14.3); LYMPHOCYTES % (AUTO) 19.7 % (20.5-51.5); MEAN CORPUSCULAR HEMOGLOBIN 29.3 uug (24.7-32.8); MEAN CORPUSCULAR HGB CONC 32 g/dL (32.3-35.6); MEAN CORPUSCULAR VOLUME 92.3 fL (75.5-95.3); MONOCYTES # (AUTO) 0.4 K/uL (2.0-10.0); MONOCYTES % (AUTO) 8.7 % (0.0-11.0); NEUTROPHILS # (AUTO) 2.9 K/uL (1.8-8.9); NEUTROPHILS % (AUTO) 59.8 % (38.5-71.5); PLATELET COUNT (AUTO) 204 K/uL (179-408); WHITE BLOOD COUNT (AUTO) 4.9 K/uL (3.8-11.8)
[2019-02-02] MEDS: IV 1/2NS 1000 ML 1,000 ML IV PRN (09:38)
[2019-02-02 09:50] LABS: ALANINE AMINOTRANSFERASE 13 U/L (14-59); ALKALINE PHOSPHATASE 52 U/L (50-136); ASPARTATE AMINOTRANSFERASE 17 U/L (15-37); BILIRUBIN,TOTAL 0.2 mg/dL (0.2-1.0); CARBON DIOXIDE 20 mmol/L (21-32); CHLORIDE 120 mmol/L (98-107); CREATINE KINASE, TOTAL 106 U/L (26-192); CREATININE 2.1 mg/dL (0.6-1.3); GLUCOSE 87 mg/dL (74-106); MAGNESIUM 2.1 mg/dL (1.8-2.4); PHOSPHOROUS 4.7 mg/dL (2.5-4.9); POTASSIUM 5.8 mmol/L (3.5-5.1); TOTAL PROTEIN, SERUM 6.3 g/dL (6.4-8.2); UREA NITROGEN, BLOOD 41 mg/dL (7-18)
[2019-02-02] MEDS ORDERED: SODIUM POLYSTYRENE SULF POWDER 15 GM UDC PO ONE (11:00)
[2019-02-02 11:38] VITALS: BP 149/71
[2019-02-02 14:01] LABS: FERRITIN 45 ng/mL (8-252); IRON, SERUM 64 ug/dL (50-175)
[2019-02-02 15:18] LABS: CARBON DIOXIDE 22 mmol/L (21-32); CHLORIDE 116 mmol/L (98-107); CREATININE 1.9 mg/dL (0.6-1.3); GLUCOSE 89 mg/dL (74-106); UREA NITROGEN, BLOOD 39 mg/dL (7-18)
[2019-02-02 15:55] VITALS: BP 165/73
[2019-02-02] MEDS: CEFTRIAXONE 1 G in IV DEXTROSE 5% 50 ML IV SCH (16:52)
[2019-02-02] MEDS: LORAZEPAM 2 MG/1 ML VIAL IV PRN ×2 (17:12→22:10)
[2019-02-02 20:00] VITALS: BP 117/77
[2019-02-03] MEDS: IV 1/2NS 1000 ML 1,000 ML IV PRN (04:08)
[2019-02-03 04:18] VITALS: BP 131/54
[2019-02-03] MEDS: LEVOTHYROXINE SODIUM 75 MCG TABLET PO SCH (06:43)
[2019-02-03 06:44] LABS: CARBON DIOXIDE 19 mmol/L (21-32); CHLORIDE 117 mmol/L (98-107); CREATININE 1.9 mg/dL (0.6-1.3); GLUCOSE 89 mg/dL (74-106); UREA NITROGEN, BLOOD 34 mg/dL (7-18)
[2019-02-03] MEDS: QUETIAPINE FUMARATE 25 MG TABLET PO SCH ×3 (08:23→20:36)
[2019-02-03] MEDS: DIVALPROEX SPRINKLE 125 MG CAP.SPRINK PO SCH ×2 (08:23→20:36)
[2019-02-03] MEDS: APIXABAN 5 MG TABLET PO SCH (08:28)
[2019-02-03] MEDS: Z GUARD REMEDY PASTE 57 GM TUBE TOP PRN (08:29)
[2019-02-03] MEDS ORDERED: IV D5W 1000ML 1,000 ML IV ONE (09:00)
[2019-02-03] MEDS: LORAZEPAM 2 MG/1 ML VIAL IV PRN (10:00)
[2019-02-03] MEDS: CHLORTHALIDONE 25 MG TABLET PO SCH (10:19)
[2019-02-03 11:00] VITALS: BP 165/59
[2019-02-03 15:00] VITALS: BP 171/69
[2019-02-03] MEDS: CEFTRIAXONE 1 G in IV DEXTROSE 5% 50 ML IV SCH (16:09)
[2019-02-03] MEDS ORDERED: APIXABAN 5 MG TABLET PO SCH (17:00)
[2019-02-03 20:00] VITALS: BP 160/84
[2019-02-04 04:30] VITALS: BP 146/68
[2019-02-04] MEDS: LEVOTHYROXINE SODIUM 75 MCG TABLET PO SCH (06:30)
[2019-02-04 06:35] LABS: CARBON DIOXIDE 21 mmol/L (21-32); CHLORIDE 114 mmol/L (98-107); CREATININE 2.1 mg/dL (0.6-1.3); GLUCOSE 85 mg/dL (74-106); UREA NITROGEN, BLOOD 34 mg/dL (7-18)
[2019-02-04 07:43] VITALS: BP 145/82
[2019-02-04] MEDS: DIVALPROEX SPRINKLE 125 MG CAP.SPRINK PO SCH (08:45)
[2019-02-04] MEDS: QUETIAPINE FUMARATE 25 MG TABLET PO SCH ×2 (08:45→16:21)
[2019-02-04] MEDS: Z GUARD REMEDY PASTE 57 GM TUBE TOP PRN (08:45)
[2019-02-04] MEDS: CHLORTHALIDONE 25 MG TABLET PO SCH (08:46)
[2019-02-04] MEDS: APIXABAN 5 MG TABLET PO SCH ×2 (08:48→16:25)
[2019-02-04] MEDS ORDERED: CEphaleXIN 500 MG CAPSULE PO SCH (09:00)
[2019-02-04] MEDS: LORAZEPAM 2 MG/1 ML VIAL IV PRN (13:16)
[2019-02-04 15:00] VITALS: BP 163/78
[2019-02-04 16:08] LABS: A/G RATIO 1.2 (0.7-1.7); ALBUMIN 3.2 g/dL (2.9-4.4); ALPHA-1-GLOBULIN 0.2 g/dL (0.0-0.4); ALPHA-2-GLOBULIN 0.6 g/dL (0.4-1.0); BETA GLOBULIN 0.9 g/dL (0.7-1.3); GAMMA GLOBULIN 0.9 g/dL (0.4-1.8); GLOBULIN, TOTAL 2.6 g/dL (2.2-3.9); M-SPIKE Not Observed g/dL (Not Observed)
[2019-02-04] MEDS ORDERED: HYDR25TA86 GT (20:18)
[2019-02-04] MEDS ORDERED: DIVA125C2 PO (20:18)
[2019-02-04] MEDS ORDERED: CEPH-570 PO (20:18)
[2019-02-04] MEDS ORDERED: APIX2.5T PO (20:18)
[2019-02-04] MEDS ORDERED: CHLO25TA2 PO (20:18)
== END 2019-02-04 18:00 | DRG 640 ==
LOC: ER 22:01 → MEDSURG3 02-01 00:21 → TELE3 02-01 02:05 → MEDSURG3 02-01 02:07
PROVIDERS: ADMIT Nurse Practitioner Acute Care; ATTEND Nurse Practitioner Acute Care
DX: E87.5 Hyperkalemia (principal); N17.0 Acute kidney failure with tubular necrosis; N18.4 Chronic kidney disease, stage 4 (severe); E44.0 Moderate protein-calorie malnutrition; Z68.1 Body mass index [BMI] 19.9 or less, adult; F03.91 Unspecified dementia, unspecified severity, with behavioral disturbance; N39.0 Urinary tract infection, site not specified; I12.9 Hypertensive chronic kidney disease with stage 1 through stage 4 chronic kidney disease, or unspecified chronic kidney disease; M62.84 Sarcopenia; Z87.440 Personal history of urinary (tract) infections; F29 Unspecified psychosis not due to a substance or known physiological condition; E03.9 Hypothyroidism, unspecified; Z79.890 Hormone replacement therapy; Z86.711 Personal history of pulmonary embolism; Z79.01 Long term (current) use of anticoagulants; H91.10 Presbycusis, unspecified ear; E87.0 Hyperosmolality and hypernatremia; I70.90 Unspecified atherosclerosis; Z79.899 Other long term (current) drug therapy; Z87.442 Personal history of urinary calculi; B96.89 Other specified bacterial agents as the cause of diseases classified elsewhere
CPT/HCPCS: 36415; 70030-TC; 70450; 71045; 76770; 83550; 83735; 83970; 84100; 84155; 84156; 84165; 84300; 84443; 85025; 85730; 87086; 93005; 97110; 97116; 97530; A4663; G0378; G0480; G0480-TC; J0696; J2060; J3490; J7030; J7060

== ENCOUNTER 2019-02-04 18:22 | Inpatient (IN) | payer MEDICARE, MEDICAID ==
[~2019-02-04] VITALS: Ht 152.4 cm; Wt 47.2 kg
[~2019-02-04 18:22] MED LIST changes: +ACET-2154 PO; -EPOE1VIA12 IJ; +LEVO-103 PO; -LEVO25TA9 PO; -LOSA25TA27 PO; +LOSA25TA3 PO; +MAG-55 PO; +QUET25TA PO; +QUET50TA PO
[2019-02-04] MEDS ORDERED: MAG HYDROX/AL HYDROX/SIMETH 30 ML LIQUID UDC PO PRN (18:30)
[2019-02-04 19:29] VITALS: BP 162/57
--- NOTE | 2019-02-04 19:30 | NUR ---
Report received from Mellisa Luevano as informed patient admitted at 1838. vitals as follow 162/57, HR of 87, RR 20 96% saturation on room air. temp of 97.8. Will continue with care plan.
[2019-02-04 20:08] VITALS: BP 138/52
[2019-02-04] MEDS ORDERED: APIX2.5T PO (20:18)
[2019-02-04] MEDS ORDERED: CHLO25TA2 PO (20:18)
[2019-02-04] MEDS ORDERED: HYDR25TA86 GT (20:18)
[2019-02-04] MEDS ORDERED: DIVA125C2 PO (20:18)
[2019-02-04] MEDS ORDERED: CEPH-570 PO (20:18)
[2019-02-04] MEDS ORDERED: Z GUARD REMEDY PASTE 57 GM TUBE TOP SCH (20:30)
[2019-02-05] MEDS: TEMAZEPAM 7.5 MG CAPSULE PO PRN (01:47)
--- NOTE | 2019-02-05 01:50 | NUR ---
PATIENT GIVEN RESTORIL 7.5MG PO FOR SLEEP. WILL CONTINUE TO MONITOR AND ASSESS.
[2019-02-05] MEDS ORDERED: MAGNESIUM HYDROXIDE 30 ML LIQUID UDC PO PRN (04:45)
[2019-02-05] MEDS ORDERED: MAG HYDROX/AL HYDROX/SIMETH 30 ML LIQUID UDC PO PRN (04:45)
[2019-02-05 07:30] VITALS: BP 181/82
[2019-02-05] MEDS ORDERED: Z GUARD REMEDY PASTE 57 GM TUBE TOP PRN (09:01)
[2019-02-05] MEDS: CLONAZEPAM 0.5 MG TABLET PO PRN ×2 (09:18→16:38)
--- NOTE | 2019-02-05 10:03 | NUR ---
Social service note: I have reviewed this patients psychosocial assessment dated 01/17/2019 and I can attest to the accuracy of the information therein. There have been no changes since his last assessment. Patient is alert and oriented x1. Patient still presents with flat affect and congruent mood. Patient is cooperative, though confused and agitated at time. Patient has a history of Dementia. Patient thought process is disoriented and thought content nonsensical. Patient denies suicidal and homicidal ideations. Patient denies visual and auditory hallucinations. Patient insight and judgment are impaired. Patient was discharged to [facility] [[address] [place] [address]; ] on 01/28/2019. However, at this time it is unclear if patient will be able to return due to behavior. Patient may need different placement. alley worker to follow-up with facility clinical trials data coordinator, Derrick, and patient granddaughter, Fanta Grady [[phone]], to formulate a safe and proper discharge.
--- NOTE | 2019-02-05 10:32 | NUR ---
FIREARMS REPORT: caseworker protective services completed and submitted a DOJ firearms report for a 5250 GD certification. A copy of report has been placed in patient chart.
[2019-02-05] MEDS: DIVALPROEX SPRINKLE 125 MG CAP.SPRINK PO SCH ×3 (11:34→23:29)
[2019-02-05] MEDS: QUETIAPINE FUMARATE 25 MG TABLET PO SCH ×2 (13:12→16:41)
[2019-02-05 15:38] VITALS: BP 118/60
[2019-02-05] MEDS ORDERED: ACETAMINOPHEN 325 MG TABLET PO PRN (17:45)
[2019-02-05 20:03] VITALS: BP 113/56
[2019-02-05] MEDS: CEphaleXIN 500 MG CAPSULE PO SCH ×2 (21:00→23:29)
--- NOTE | 2019-02-05 23:50 | NUR ---
received to care, up in adelita chair, asleep. medications were initially held. she woke up at 2330, and she took her medications, along with pudding, and 2 containers of aapple juice. as of 2349, she remains awake, and restless. will continue to monitor closely.
[2019-02-06] MEDS: CLONAZEPAM 0.5 MG TABLET PO PRN ×3 (00:27→22:17)
--- NOTE | 2019-02-06 00:27 | NUR ---
remains restless. PRN klonopin was given.
--- NOTE | 2019-02-06 01:15 | NUR ---
pt was assisted to bed at 0055. as of 011, she appears to be asleep. no distress noted.
[2019-02-06] MEDS: LEVOTHYROXINE SODIUM 75 MCG TABLET PO SCH (06:33)
[2019-02-06 07:30] VITALS: BP 147/61
[2019-02-06] MEDS ORDERED: LEVOTHYROXINE SODIUM 50 MCG TABLET PO SCH (07:30)
[2019-02-06 07:38] LABS: BASOPHILS % (AUTO) 0.8 % (0.0-2.0); EOSINOPHILS # (AUTO) 0.7 K/uL (0.0-0.7); EOSINOPHILS % (AUTO) 14.6 % (0.0-7.0); HEMATOCRIT 30.1 % (31.2-41.9); HEMOGLOBIN 9.6 g/dL (10.9-14.3); LYMPHOCYTES # (AUTO) 1.4 K/uL (20.0-40.0); LYMPHOCYTES % (AUTO) 30.8 % (20.5-51.5); MEAN CORPUSCULAR HGB CONC 32 g/dL (32.3-35.6); MEAN CORPUSCULAR VOLUME 91.3 fL (75.5-95.3); MONOCYTES # (AUTO) 0.5 K/uL (2.0-10.0); MONOCYTES % (AUTO) 10.3 % (0.0-11.0); NEUTROPHILS % (AUTO) 43.5 % (38.5-71.5); PLATELET COUNT (AUTO) 213 K/uL (179-408); WHITE BLOOD COUNT (AUTO) 4.7 K/uL (3.8-11.8)
[2019-02-06 07:48] LABS: CARBON DIOXIDE 20 mmol/L (21-32); CHLORIDE 111 mmol/L (98-107); CREATININE 2.1 mg/dL (0.6-1.3); GLUCOSE 79 mg/dL (74-106); PHOSPHOROUS 5.5 mg/dL (2.5-4.9); POTASSIUM 4.8 mmol/L (3.5-5.1); UREA NITROGEN, BLOOD 40 mg/dL (7-18)
[2019-02-06] MEDS ORDERED: CHLORTHALIDONE 25 MG TABLET PO SCH ×2 (09:00)
[2019-02-06] MEDS: QUETIAPINE FUMARATE 25 MG TABLET PO SCH ×3 (09:48→16:55)
[2019-02-06] MEDS: CEphaleXIN 500 MG CAPSULE PO SCH ×2 (09:48→20:34)
[2019-02-06 11:41] LABS: IRON, SERUM 60 ug/dL (50-175)
[2019-02-06] MEDS: APIXABAN 5 MG TABLET PO SCH ×2 (13:28→17:12)
[2019-02-06 16:00] VITALS: BP 99/55
[2019-02-06 20:19] VITALS: BP 102/55
[2019-02-06] MEDS: DIVALPROEX SPRINKLE 125 MG CAP.SPRINK PO SCH (20:34)
--- NOTE | 2019-02-06 22:00 | NUR ---
received to care, up in adelita chair at nurses station for safety. pleasant upon approach. compliant with medications po fluids, and staff direction. as of 2199, she remains awake and restless. will continue to monitor closely.
[2019-02-06 22:17] VITALS: BP 110/62
--- NOTE | 2019-02-06 22:17 | NUR ---
PRN klonopin given for restlessness
--- NOTE | 2019-02-06 23:30 | NUR ---
assisted to bed at 2300. as of 2329, she appears to be asleep. no distress noted. will continue to monitor closely.
[2019-02-07] MEDS: LEVOTHYROXINE SODIUM 75 MCG TABLET PO SCH (06:37)
[2019-02-07 07:30] VITALS: BP 113/56
[2019-02-07] MEDS: CEphaleXIN 500 MG CAPSULE PO SCH (08:32)
[2019-02-07] MEDS: DIVALPROEX SPRINKLE 125 MG CAP.SPRINK PO SCH ×3 (08:32→16:32)
[2019-02-07] MEDS: QUETIAPINE FUMARATE 25 MG TABLET PO SCH ×3 (08:33→16:32)
[2019-02-07] MEDS: APIXABAN 5 MG TABLET PO SCH ×2 (08:37→16:34)
[2019-02-07 16:00] VITALS: BP 128/53
[2019-02-07 19:43] VITALS: BP 123/53
--- NOTE | 2019-02-07 22:00 | NUR ---
received to care, lying in bed, pleasant upon approach. compliant with staff direction. fluids and snack given at bedtime. as of 2200, she appears to be asleep, in bed. no distress noted. will continue to monitor closely.
[2019-02-08] MEDS: TEMAZEPAM 7.5 MG CAPSULE PO PRN ×2 (00:11→23:21)
--- NOTE | 2019-02-08 00:11 | NUR ---
pt is now awake. was assisted to the bathroom, but remains restless, trying to get out of bed. pt was assisted up in the adelita chair, and placed at nurses station, for safety. PRN restoril was given, at this time. currently eating a snack, and drinking apple juice. will continue to monitor closely.
[2019-02-08] MEDS: CLONAZEPAM 0.5 MG TABLET PO PRN (01:12)
--- NOTE | 2019-02-08 01:12 | NUR ---
remains awake, and restless, banging on table, difficult to redirect. PRN klonopin was given. will continue to monitor closely.
--- NOTE | 2019-02-08 02:00 | NUR ---
appears to be asleep. no distress noted.
[2019-02-08] MEDS: LEVOTHYROXINE SODIUM 75 MCG TABLET PO SCH (06:40)
[2019-02-08] MEDS: DIVALPROEX SPRINKLE 125 MG CAP.SPRINK PO SCH ×3 (09:32→17:00)
[2019-02-08 09:34] VITALS: BP 145/54
[2019-02-08] MEDS: QUETIAPINE FUMARATE 25 MG TABLET PO SCH ×3 (09:34→17:00)
[2019-02-08] MEDS: APIXABAN 5 MG TABLET PO SCH ×2 (09:43→17:50)
[2019-02-08 16:00] VITALS: BP 123/52
[2019-02-08 19:51] VITALS: BP 129/60
[2019-02-08] MEDS: Z GUARD REMEDY PASTE 57 GM TUBE TOP SCH (20:31)
--- NOTE | 2019-02-09 05:46 | NUR ---
GPS: Remain cooperative with meds and care. assisted with adl's. no agitation noted at this time. slept 3 hrs after restoril 7.5 mg po given. resting in bed comfortably.
[2019-02-09] MEDS: LEVOTHYROXINE SODIUM 75 MCG TABLET PO SCH (06:34)
[2019-02-09 07:30] VITALS: BP 117/91
[2019-02-09] MEDS: CLONAZEPAM 0.5 MG TABLET PO PRN (08:04)
[2019-02-09 08:16] LABS: BASOPHILS % (AUTO) 0.3 % (0.0-2.0); EOSINOPHILS % (AUTO) 12.9 % (0.0-7.0); HEMATOCRIT 29.9 % (31.2-41.9); HEMOGLOBIN 9.7 g/dL (10.9-14.3); LYMPHOCYTES # (AUTO) 1.6 K/uL (20.0-40.0); LYMPHOCYTES % (AUTO) 19.8 % (20.5-51.5); MEAN CORPUSCULAR HEMOGLOBIN 29.7 uug (24.7-32.8); MEAN CORPUSCULAR HGB CONC 32 g/dL (32.3-35.6); MEAN CORPUSCULAR VOLUME 91.8 fL (75.5-95.3); MONOCYTES # (AUTO) 0.8 K/uL (2.0-10.0); MONOCYTES % (AUTO) 10.4 % (0.0-11.0); NEUTROPHILS # (AUTO) 4.4 K/uL (1.8-8.9); NEUTROPHILS % (AUTO) 56.6 % (38.5-71.5); PLATELET COUNT (AUTO) 206 K/uL (179-408); RED BLOOD CELL COUNT(AUTO) 3.26 MIL/uL (3.63-4.92); WHITE BLOOD COUNT (AUTO) 7.8 K/uL (3.8-11.8)
[2019-02-09 08:41] LABS: CARBON DIOXIDE 22 mmol/L (21-32); CHLORIDE 109 mmol/L (98-107); CREATININE 2.4 mg/dL (0.6-1.3); GLUCOSE 83 mg/dL (74-106); MAGNESIUM 2.3 mg/dL (1.8-2.4); PHOSPHOROUS 6.1 mg/dL (2.5-4.9); POTASSIUM 5.9 mmol/L (3.5-5.1); UREA NITROGEN, BLOOD 70 mg/dL (7-18)
[2019-02-09 08:44] LABS: IRON, SERUM 54 ug/dL (50-175)
[2019-02-09] MEDS: QUETIAPINE FUMARATE 25 MG TABLET PO SCH ×3 (09:10→17:31)
[2019-02-09] MEDS: DIVALPROEX SPRINKLE 125 MG CAP.SPRINK PO SCH ×3 (09:10→17:31)
[2019-02-09] MEDS: APIXABAN 5 MG TABLET PO SCH ×2 (09:12→17:31)
[2019-02-09] MEDS: Z GUARD REMEDY PASTE 57 GM TUBE TOP SCH ×2 (09:12→20:21)
[2019-02-09] MEDS ORDERED: SODIUM POLYSTYRENE SULFONATE 15 G/60 ML LIQUID UDC PO ONE (10:15)
[2019-02-09 16:00] VITALS: BP 121/55
[2019-02-09 20:42] VITALS: BP 130/50
[2019-02-09] MEDS: TEMAZEPAM 7.5 MG CAPSULE PO PRN (23:00)
--- NOTE | 2019-02-10 05:56 | NUR ---
GPS: Remain cooperative with meds and care. assisted with adl's. no agitation noted at this time. slept 6:30 hrs after restoril 7.5 mg po given. Resting in bed comfortably.
[2019-02-10] MEDS: LEVOTHYROXINE SODIUM 75 MCG TABLET PO SCH (06:35)
[2019-02-10 07:30] VITALS: BP 124/50
[2019-02-10 08:12] LABS: BASOPHILS % (AUTO) 0.2 % (0.0-2.0); EOSINOPHILS % (AUTO) 14.9 % (0.0-7.0); HEMATOCRIT 28.1 % (31.2-41.9); HEMOGLOBIN 9.1 g/dL (10.9-14.3); LYMPHOCYTES # (AUTO) 1.4 K/uL (20.0-40.0); LYMPHOCYTES % (AUTO) 20.4 % (20.5-51.5); MEAN CORPUSCULAR HEMOGLOBIN 29.8 uug (24.7-32.8); MEAN CORPUSCULAR HGB CONC 33 g/dL (32.3-35.6); MEAN CORPUSCULAR VOLUME 91.8 fL (75.5-95.3); MONOCYTES # (AUTO) 0.7 K/uL (2.0-10.0); MONOCYTES % (AUTO) 9.9 % (0.0-11.0); NEUTROPHILS # (AUTO) 3.8 K/uL (1.8-8.9); NEUTROPHILS % (AUTO) 54.6 % (38.5-71.5); PLATELET COUNT (AUTO) 183 K/uL (179-408); RED BLOOD CELL COUNT(AUTO) 3.06 MIL/uL (3.63-4.92)
[2019-02-10] MEDS: APIXABAN 5 MG TABLET PO SCH ×2 (08:29→17:05)
[2019-02-10] MEDS: DIVALPROEX SPRINKLE 125 MG CAP.SPRINK PO SCH ×3 (08:29→17:05)
[2019-02-10] MEDS: QUETIAPINE FUMARATE 25 MG TABLET PO SCH ×3 (08:29→17:05)
[2019-02-10] MEDS: Z GUARD REMEDY PASTE 57 GM TUBE TOP SCH ×2 (08:32→20:04)
[2019-02-10 09:21] LABS: CARBON DIOXIDE 22 mmol/L (21-32); CHLORIDE 111 mmol/L (98-107); CREATININE 2.6 mg/dL (0.6-1.3); GLUCOSE 106 mg/dL (74-106); MAGNESIUM 2.2 mg/dL (1.8-2.4); PHOSPHOROUS 5.7 mg/dL (2.5-4.9); POTASSIUM 5.2 mmol/L (3.5-5.1)
[2019-02-10 10:31] LABS: UREA NITROGEN, BLOOD 84 mg/dL (7-18)
[2019-02-10 16:00] VITALS: BP 148/62
[2019-02-10 19:48] VITALS: BP 128/47
[2019-02-10] MEDS: TEMAZEPAM 7.5 MG CAPSULE PO PRN (21:59)
[2019-02-10] MEDS: CLONAZEPAM 0.5 MG TABLET PO PRN (23:35)
--- NOTE | 2019-02-10 23:38 | NUR ---
patient is very agitated. banging on the table. Klonopin 0.5 mg po given.
--- NOTE | 2019-02-11 00:38 | NUR ---
patient is calm at this time. prn effective for agitation.
--- NOTE | 2019-02-11 06:01 | NUR ---
GPS: Remain cooperative with meds and care. assisted with adl's. no agitation noted at this time. slept 3 hrs after restoril 7.5 mg po given. Resting in bed comfortably.
[2019-02-11] MEDS: LEVOTHYROXINE SODIUM 75 MCG TABLET PO SCH (06:34)
[2019-02-11 07:22] LABS: CARBON DIOXIDE 25 mmol/L (21-32); CHLORIDE 112 mmol/L (98-107); CREATININE 2.5 mg/dL (0.6-1.3); GLUCOSE 95 mg/dL (74-106); MAGNESIUM 2.4 mg/dL (1.8-2.4); PHOSPHOROUS 5.9 mg/dL (2.5-4.9); POTASSIUM 4.7 mmol/L (3.5-5.1)
[2019-02-11 07:47] VITALS: BP 137/65
[2019-02-11 07:57] LABS: BASOPHILS % (AUTO) 0.4 % (0.0-2.0); EOSINOPHILS % (AUTO) 15.8 % (0.0-7.0); HEMATOCRIT 27.1 % (31.2-41.9); HEMOGLOBIN 8.7 g/dL (10.9-14.3); LYMPHOCYTES # (AUTO) 1.5 K/uL (20.0-40.0); LYMPHOCYTES % (AUTO) 22.8 % (20.5-51.5); MEAN CORPUSCULAR HEMOGLOBIN 29.5 uug (24.7-32.8); MEAN CORPUSCULAR HGB CONC 32 g/dL (32.3-35.6); MEAN CORPUSCULAR VOLUME 91.5 fL (75.5-95.3); MONOCYTES # (AUTO) 0.7 K/uL (2.0-10.0); MONOCYTES % (AUTO) 11.2 % (0.0-11.0); NEUTROPHILS # (AUTO) 3.2 K/uL (1.8-8.9); NEUTROPHILS % (AUTO) 49.8 % (38.5-71.5); PLATELET COUNT (AUTO) 176 K/uL (179-408); RED BLOOD CELL COUNT(AUTO) 2.97 MIL/uL (3.63-4.92); WHITE BLOOD COUNT (AUTO) 6.5 K/uL (3.8-11.8)
[2019-02-11 08:11] LABS: UREA NITROGEN, BLOOD 93 mg/dL (7-18)
[2019-02-11] MEDS: CLONAZEPAM 0.5 MG TABLET PO PRN ×2 (08:19→21:06)
[2019-02-11] MEDS: DIVALPROEX SPRINKLE 125 MG CAP.SPRINK PO SCH ×3 (09:08→16:22)
[2019-02-11] MEDS: QUETIAPINE FUMARATE 25 MG TABLET PO SCH ×4 (09:08→23:22)
[2019-02-11] MEDS: APIXABAN 5 MG TABLET PO SCH ×2 (09:09→16:22)
[2019-02-11] MEDS: Z GUARD REMEDY PASTE 57 GM TUBE TOP SCH ×2 (09:13→20:39)
--- NOTE | 2019-02-11 09:56 | NUR ---
GPS: Nursing Notes: Abnormal Lab: Staff informed Aubrey Nova ACNPBC of abnormal BMP, specially the elevated BUN = 93, Creatinine = 2.5, no further orders given at this time. Also, informed charge nurse, continue with treatment plan.
--- NOTE | 2019-02-11 10:36 | NUR ---
Discharge planning: market research worker faxed inquiry to [facility] [[address] [place] [address]; ] for admission review. market research worker awaiting response.
[2019-02-11 15:45] VITALS: BP 122/41
[2019-02-11 20:13] VITALS: BP 136/82
[2019-02-11] MEDS: ACETAMINOPHEN 325 MG TABLET PO PRN (21:07)
--- NOTE | 2019-02-11 22:00 | NUR ---
received to care, up in adelita chair for safety, pleasant and calm upon approach. snacks and fluids were given. PRN klonopin was given at 2105 for anxiety/ restlessness, which was moderately effective. as of 2229, she remains awake, at nurses station. no distress noted. will continue to monitor closely.
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
--- NOTE | 2019-02-12 00:27 | NUR ---
remains restless, but appears slightly calmer. banging on table, and yelling is less frequent. will continue to monitor closely.
[2019-02-12] MEDS: CLONAZEPAM 0.5 MG TABLET PO PRN ×2 (03:22→19:53)
[2019-02-12] MEDS: ACETAMINOPHEN 325 MG TABLET PO PRN ×2 (03:22→19:53)
--- NOTE | 2019-02-12 03:22 | NUR ---
is now agitated, yelling and banging on table. PRN klonopin was given.
--- NOTE | 2019-02-12 04:30 | NUR ---
appears calmer, now
--- NOTE | 2019-02-12 06:00 | NUR ---
slept 1 hour, total.
[2019-02-12] MEDS: LEVOTHYROXINE SODIUM 75 MCG TABLET PO SCH (06:14)
[2019-02-12 07:30] VITALS: BP 112/45
[2019-02-12] MEDS: QUETIAPINE FUMARATE 25 MG TABLET PO SCH ×3 (08:45→16:16)
[2019-02-12] MEDS: Z GUARD REMEDY PASTE 57 GM TUBE TOP SCH ×2 (08:45→20:14)
[2019-02-12] MEDS: DIVALPROEX SPRINKLE 125 MG CAP.SPRINK PO SCH ×3 (08:45→16:16)
[2019-02-12] MEDS: APIXABAN 5 MG TABLET PO SCH ×2 (08:45→16:17)
[2019-02-12 14:27] LABS: CARBON DIOXIDE 23 mmol/L (21-32); CHLORIDE 109 mmol/L (98-107); CREATININE 2.3 mg/dL (0.6-1.3); GLUCOSE 110 mg/dL (74-106); MAGNESIUM 2.4 mg/dL (1.8-2.4); PHOSPHOROUS 4.8 mg/dL (2.5-4.9); POTASSIUM 4.4 mmol/L (3.5-5.1)
[2019-02-12 14:30] LABS: BASOPHILS % (AUTO) 0.4 % (0.0-2.0); EOSINOPHILS # (AUTO) 1.2 K/uL (0.0-0.7); EOSINOPHILS % (AUTO) 21.4 % (0.0-7.0); HEMATOCRIT 29.2 % (31.2-41.9); HEMOGLOBIN 9.3 g/dL (10.9-14.3); LYMPHOCYTES # (AUTO) 1.3 K/uL (20.0-40.0); LYMPHOCYTES % (AUTO) 24.3 % (20.5-51.5); MEAN CORPUSCULAR HGB CONC 32 g/dL (32.3-35.6); MEAN CORPUSCULAR VOLUME 91.2 fL (75.5-95.3); MONOCYTES # (AUTO) 0.7 K/uL (2.0-10.0); MONOCYTES % (AUTO) 12.4 % (0.0-11.0); NEUTROPHILS # (AUTO) 2.3 K/uL (1.8-8.9); NEUTROPHILS % (AUTO) 41.5 % (38.5-71.5); PLATELET COUNT (AUTO) 189 K/uL (179-408); UREA NITROGEN, BLOOD 89 mg/dL (7-18); WHITE BLOOD COUNT (AUTO) 5.5 K/uL (3.8-11.8)
[2019-02-12 15:09] VITALS: BP 120/54
[2019-02-12 15:09] LABS: EOSINOPHILS % (MANUAL) 18 % (0-8); LYMPHOCYTES % (MANUAL) 25 % (20-40); MONOCYTES % (MANUAL) 13 % (2-10); NEUTROPHILS % (MANUAL) 44 % (42-75)
[2019-02-12 20:12] VITALS: BP 129/61
[2019-02-12] MEDS: TEMAZEPAM 7.5 MG CAPSULE PO PRN (22:07)
[2019-02-13] MEDS: LEVOTHYROXINE SODIUM 75 MCG TABLET PO SCH (06:21)
[2019-02-13 07:01] LABS: BASOPHILS % (AUTO) 0.7 % (0.0-2.0); EOSINOPHILS # (AUTO) 1.1 K/uL (0.0-0.7); EOSINOPHILS % (AUTO) 20.4 % (0.0-7.0); HEMATOCRIT 27.2 % (31.2-41.9); HEMOGLOBIN 8.9 g/dL (10.9-14.3); LYMPHOCYTES # (AUTO) 1.4 K/uL (20.0-40.0); LYMPHOCYTES % (AUTO) 26.4 % (20.5-51.5); MEAN CORPUSCULAR HEMOGLOBIN 29.5 uug (24.7-32.8); MEAN CORPUSCULAR HGB CONC 33 g/dL (32.3-35.6); MEAN CORPUSCULAR VOLUME 90.8 fL (75.5-95.3); MONOCYTES # (AUTO) 0.6 K/uL (2.0-10.0); MONOCYTES % (AUTO) 11.6 % (0.0-11.0); NEUTROPHILS # (AUTO) 2.1 K/uL (1.8-8.9); NEUTROPHILS % (AUTO) 40.9 % (38.5-71.5); PLATELET COUNT (AUTO) 178 K/uL (179-408); WHITE BLOOD COUNT (AUTO) 5.2 K/uL (3.8-11.8)
--- NOTE | 2019-02-13 07:05 | NUR ---
received to care, up in adelita chair. compliant with medications and staff direction. HORACE navarroiven at 1953, and daniella at 2207. she slept 3 hours. as of 0500, she continues to sleep. no distress noted.
[2019-02-13 07:06] LABS: CARBON DIOXIDE 26 mmol/L (21-32); CHLORIDE 112 mmol/L (98-107); CREATININE 2.5 mg/dL (0.6-1.3); GLUCOSE 121 mg/dL (74-106); MAGNESIUM 2.4 mg/dL (1.8-2.4); PHOSPHOROUS 4.1 mg/dL (2.5-4.9)
[2019-02-13 07:08] LABS: UREA NITROGEN, BLOOD 97 mg/dL (7-18)
[2019-02-13 07:26] LABS: EOSINOPHILS % (MANUAL) 20 % (0-8); LYMPHOCYTES % (MANUAL) 26 % (20-40); MONOCYTES % (MANUAL) 12 % (2-10); NEUTROPHILS % (MANUAL) 42 % (42-75)
[2019-02-13 07:30] VITALS: BP 123/65
--- NOTE | 2019-02-13 08:10 | NUR ---
Pt.in bed cooperative was compl.with medication.denies any pain @ time.
[2019-02-13] MEDS: DIVALPROEX SPRINKLE 125 MG CAP.SPRINK PO SCH ×3 (08:32→16:30)
[2019-02-13] MEDS: QUETIAPINE FUMARATE 25 MG TABLET PO SCH ×3 (08:32→16:30)
[2019-02-13] MEDS: Z GUARD REMEDY PASTE 57 GM TUBE TOP SCH ×2 (08:33→20:36)
[2019-02-13] MEDS: APIXABAN 5 MG TABLET PO SCH ×2 (08:33→16:28)
--- NOTE | 2019-02-13 14:00 | NUR ---
Pt.sleeping,no s/s of distress.
[2019-02-13 16:00] VITALS: BP 119/53
--- NOTE | 2019-02-13 18:00 | NUR ---
Pt.eating dinner ,was assisted with.
[2019-02-13 20:00] VITALS: BP 156/67
[2019-02-13] MEDS: CLONAZEPAM 0.5 MG TABLET PO PRN (21:31)
[2019-02-13] MEDS: ACETAMINOPHEN 325 MG TABLET PO PRN (21:31)
--- NOTE | 2019-02-13 22:00 | NUR ---
received to care, up in adelita chair for safety, pleasant and calm upon approach. snacks and fluids were given. PRN klonopin was given at 2130 for anxiety/ restlessness, which was moderately effective. as of 2199, she remains awake, at nurses station. appears slightly restless. no distress noted. will continue to monitor closely.
[2019-02-13] MEDS: TEMAZEPAM 7.5 MG CAPSULE PO PRN (23:13)
--- NOTE | 2019-02-13 23:13 | NUR ---
remains awake, and restless. PRN restoril was given.
--- NOTE | 2019-02-14 01:21 | NUR ---
remains awake and restless, but calmer. assisted to the bed, but tried to climb out. remains in adelita chair, for safety.
[2019-02-14] MEDS: CLONAZEPAM 0.5 MG TABLET PO PRN (01:44)
--- NOTE | 2019-02-14 01:44 | NUR ---
is now restless, and agitated, banging on the table, appearing distracted by internal stimuli, yelling that somebody stole her babies, difficult to redirect. HORACE herrera was given at this time. will continue to monitor closely.
--- NOTE | 2019-02-14 03:00 | NUR ---
assisted to bed.
--- NOTE | 2019-02-14 06:00 | NUR ---
slept 30 minutes, all night. remains in bed. no distress noted.
[2019-02-14] MEDS: LEVOTHYROXINE SODIUM 75 MCG TABLET PO SCH (06:37)
[2019-02-14 07:30] VITALS: BP 137/62
[2019-02-14] MEDS: Z GUARD REMEDY PASTE 57 GM TUBE TOP SCH ×2 (08:35→20:36)
[2019-02-14] MEDS: DIVALPROEX SPRINKLE 125 MG CAP.SPRINK PO SCH ×3 (08:35→16:30)
[2019-02-14] MEDS: QUETIAPINE FUMARATE 25 MG TABLET PO SCH ×3 (08:35→16:30)
[2019-02-14] MEDS: APIXABAN 5 MG TABLET PO SCH ×2 (08:37→16:31)
[2019-02-14 16:00] VITALS: BP 128/55
--- NOTE | 2019-02-14 18:27 | NUR ---
Patient for wound consult for sacrum small open wound. Addendum: 02/14/19 at 1829 by ALEXI LEIJA RN RN picture taken for sacrum open wound
[2019-02-14 20:00] VITALS: BP 115/55
[2019-02-14] MEDS: TEMAZEPAM 7.5 MG CAPSULE PO PRN (21:25)
[2019-02-15] MEDS: CLONAZEPAM 0.5 MG TABLET PO PRN ×2 (02:32→09:17)
--- NOTE | 2019-02-15 06:03 | NUR ---
GPS: Remain cooperative with meds and care. assisted with adl's. no agitation noted at this time. slept 6 hrs after restoril 7.5 mg po given. Resting in bed comfortably. bed alarm on for safety.
[2019-02-15] MEDS: LEVOTHYROXINE SODIUM 75 MCG TABLET PO SCH (06:38)
--- NOTE | 2019-02-15 07:41 | NUR ---
patient is in bed, no acute distress noted, no aggressive behaviour noted at this time
[2019-02-15 08:00] VITALS: BP 120/61
--- NOTE | 2019-02-15 09:04 | NUR ---
DC NOTE: Patient will be discharged to [facility] [[address] [place] [address]; ] and transportation will be provided by ambulance at 1:00pm. Please arrange ambulance transportation for this patient. Acceptance to facility was received by [place], stockroom coordinator, who states they are ready to accept the patient today. Patient is AxOx1, denies suicidal ideation, is able to plan for self-care, and is agreeable with discharge plan. sand control worker has called and spoken with patient daughter, Celi Morrell [[phone]], who is aware and agreeable with discharge plan. Patient will be followed by Dr. Campbell (adjunct physics instructor) and Dr. Kelly (psychiatrist) at the facility. Patient has also been provided with mental health resources including [facility] Crisis Line [ ], Alaina Doardo [ ], and the National Suicide Prevention Lifeline [ ].
[2019-02-15] MEDS: DIVALPROEX SPRINKLE 125 MG CAP.SPRINK PO SCH ×2 (09:17→13:06)
[2019-02-15] MEDS: QUETIAPINE FUMARATE 25 MG TABLET PO SCH ×2 (09:17→13:06)
[2019-02-15] MEDS: APIXABAN 5 MG TABLET PO SCH (09:18)
[2019-02-15] MEDS: Z GUARD REMEDY PASTE 57 GM TUBE TOP SCH (09:25)
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
[2019-02-15 13:34] VITALS: BP 121/47
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
--- NOTE | 2019-02-15 14:13 | NUR ---
patient discharged to [facility], accompanied by packing machine inspector, report given to nurse name Polina, instructions and discharge papers given to packing machine inspector, ID band removed, Patient's glasses given to FIBER OPTIC SPLICER, belongings signed and accounted, however patient had no other belongins with her. no acute distress at time of discharge, no aggressive behaviour noted, skin issues addressed and report given to nurse at [facility] regarding skin issues, and safety issues, patient is high risk to fall.
== END 2019-02-15 14:57 | DRG 885 ==
LOC: GPS 18:22
PROVIDERS: ADMIT Psychiatry & Neurology Psychiatry; ATTEND Internal Medicine
DX: F29 Unspecified psychosis not due to a substance or known physiological condition (principal); E43 Unspecified severe protein-calorie malnutrition; N17.9 Acute kidney failure, unspecified; I13.11 Hypertensive heart and chronic kidney disease without heart failure, with stage 5 chronic kidney disease, or end stage renal disease; F03.91 Unspecified dementia, unspecified severity, with behavioral disturbance; D68.59 Other primary thrombophilia; N39.0 Urinary tract infection, site not specified; E87.0 Hyperosmolality and hypernatremia; N18.4 Chronic kidney disease, stage 4 (severe); F39 Unspecified mood [affective] disorder; Z86.711 Personal history of pulmonary embolism; E03.9 Hypothyroidism, unspecified; Z79.01 Long term (current) use of anticoagulants; E87.5 Hyperkalemia; M19.90 Unspecified osteoarthritis, unspecified site; Z74.09 Other reduced mobility; Z68.20 Body mass index [BMI] 20.0-20.9, adult; D63.8 Anemia in other chronic diseases classified elsewhere; E83.39 Other disorders of phosphorus metabolism; Z87.440 Personal history of urinary (tract) infections
CPT/HCPCS: 36415; 83550; 83735; 84100; 85025; 97110; 97112; 97116; 97530; A4663